=== PATIENT | male | born 1950 | race Caucasian/White ===

== ENCOUNTER 2016-08-31 08:07 | Observation (INO) | payer BC ==
[~2016-08-31] VITALS: Ht 175.3 cm; Wt 73.6 kg
[~2016-08-31 08:07] MED LIST: AMLO-218 PO; ARIP10TA13 PO; BUPR-75 PO; CIPR500T4 PO; HYDR-3498 PO; METR500T PO; NAPR-260 PO; QUET50TA16 PO; ZOC20 PO
[2016-08-31] MEDS ORDERED: ONDANSETRON 4 MG INJ IV STA (08:22)
[2016-08-31] MEDS ORDERED: morphine 4 MG/ML VIAL IV STA ×2 (08:22→11:07)
--- NOTE | 2016-08-31 08:57 | ERA ---
ER Documentation Chief Complaint Date/Time DATE: 08/31/16 TIME: 08:53 Chief Complaint Chest pain HPI This 66-year-old male with a history of hypertension complains 2 hours prior to arrival of substernal chest pressure without radiation. Says he was short of breath and a little diaphoretic no palpitations no nausea. Patient has no prior cardiac history or prior cardiac workup. EMS was called and he was given aspirin prior to arrival as well as 2 sprays of nitroglycerin sublingual without change in chest pain condition. He says his pain is gradually starting to improve and is only very mild at this point. Says he is an occasional smoker. Also complaining of 2-3 months pain plantar surface of the left foot distally around metatarsal head #3. No foreign body known ROS All systems reviewed and are negative except as per history of present illness. Medications Home Meds Active Scripts Simvastatin (Simvastatin) 20 Mg Tablet, 20 MG PO HS for high cholersterol, #30 TAB Prov:SOHAIL CULLEN MD 05/04/14 Reported Medications Quetiapine Fumarate* (Seroquel*) 50 Mg Tablet, 50 MG PO HS, TAB 09/07/15 Bupropion Hcl* (Wellbutrin XL*) 150 Mg Tab.sr.24h, 150 MG PO DAILY, TAB.SA 09/07/15 Amlodipine Besylate* (Norvasc*) 10 Mg Tablet, 10 MG PO DAILY, TAB 05/02/14 Aripiprazole* (Abilify*) 10 Mg Tablet, 10 MG PO BID, TAB 05/02/14 Discontinued Scripts Naproxen* (Naprosyn*) 500 Mg Tablet, 500 MG PO BID Y for PAIN AND/OR INFLAMMATION, #30 TAB Prov:LOU ROMO DO 09/07/15 Hydrocodone Bit-Acetaminophen* (Circle*) 5-325 Mg Tab, 1 TAB PO Q6 Y for PAIN, # 7 TAB Prov:LOU ROMO DO 09/07/15 Metronidazole* (Flagyl*) 500 Mg Tablet, 500 MG PO TID for 14 Days, TAB Prov:LOU ROMO DO 09/07/15 Ciprofloxacin Hcl* (Ciprofloxacin Hcl*) 500 Mg Tablet, 500 MG PO BID for 14 Days , TAB Prov:LOU ROMO DO 09/07/15 Allergies Allergies: Coded Allergies: Penicillins (Verified Allergy, Unknown, 04/16/15) PMhx/Soc Medical and Surgical Hx: pt denies Surgical Hx History of Surgery: No Anesthesia Reaction: No Hx Neurological Disorder: Yes (STROKE) Hx Respiratory Disorders: No Hx Cardiac Disorders: Yes (HTN) Hx Psychiatric Problems: No Hx Miscellaneous Medical Probl: No Hx Alcohol Use: Yes ("15 YEARS AGO") Hx Substance Use: Yes ("15 YEARS AGO") Hx Tobacco Use: Yes ("15 YEARS AGO") Smoking Status: Former smoker FmHx Family History: No coronary disease Physical Exam Vitals Vital Signs Date Time Temp Pulse Resp B/P Pulse Ox O2 Delivery O2 Flow Rate FiO2 08/31/16 10:02 98.0 76 133/96 100 Nasal Cannula 2.0 08/31/16 08:46 98.0 74 18 136/94 100 08/31/16 08:20 Nasal Cannula 2 08/31/16 08:20 98.0 20 124/94 100 2.0 Physical Exam Const: Well-developed, well-nourished Head: Atraumatic, normocephalic Eyes: Normal Conjunctiva, PERRLA, EOMI, normal sclera, no nystagmus ENT: Normal External Ears, Nose and Mouth, moist mucus membranes. Neck: Full range of motion. No meningismus, no lymphadenopathy. Resp: Clear to auscultation bilaterally, no wheezing, rhonchi, rales Cardio: Regular rate and rhythm, no murmurs, S1 S2 present Abd: Soft, non tender x 4, non distended. Normal bowel sounds, no guarding or rebound, no pulsitile abdominal masses or bruits Skin: No petechiae or rashes, no ecchymosis , no maculopapular rash Back: No midline or flank tenderness Ext: No cyanosis, or edema, FROM x 4, normal inspection, neurovascularly intact x 4 Neur: Awake and alert, STR 5/5 x 4, sensation intact x 4, no focal findings, cerebellum intact Psych: Normal Mood and Affect Result Diagram: 08/31/1692608/31/16926 Results 24 hrs Laboratory Tests Test 08/31/16 09:27 Activated Partial Thromboplast Time 25.8Sec Anion Gap 20 Basophils # 0.010^3/ul Basophils % 0.5% Blood Urea Nitrogen 13mg/dl Calcium Level 9.8mg/dl Carbon Dioxide Level 26mmol/L Chloride Level 101mmol/L Creatinine 1.17mg/dl Eosinophils # 0.010^3/ul Eosinophils % 0.6% Glucose Level 87mg/dl Hematocrit 54.3% Hemoglobin 18.5g/dl INR International Normalized Ratio 0.96 Lymphocytes # 1.410^3/ul Lymphocytes % 24.0% Mean Corpuscular Hemoglobin 30.5pg Mean Corpuscular Hemoglobin Concent 34.0g/dl Mean Corpuscular Volume 89.5fl Mean Platelet Volume 7.7fl Monocytes # 0.410^3/ul Monocytes % 6.4% Neutrophils # 4.010^3/ul Neutrophils % 68.5% Nucleated Red Blood Cells # 0.010^3/ul Nucleated Red Blood Cells % 0.0/100WBC Platelet Count 25763^3/UL Potassium Level 3.9mmol/L Prothrombin Time 12.8Sec Prothrombin Time Ratio 1.0 Red Blood Count 6.0710^6/ul Red Cell Distribution Width 13.7% Sodium Level 143mmol/L Troponin I 0.014ng/ml White Blood Count 5.810^3/ul Current Medications Medications (Trade) Dose Ordered Sig/Yoandy Route PRN Reason Start Time Stop Time Status Last Admin Dose Admin Morphine Sulfate (morphine) 4 mg ONCE STAT IV 08/31/16 08:22 08/31/16 08:24 DC 08/31/16 08:39 Ondansetron HCl (Zofran Inj) 4 mg ONCE STAT IV 08/31/16 08:22 08/31/16 08:24 DC 08/31/16 08:39 Morphine Sulfate (morphine) 4 mg ONCE STAT IV 08/31/16 11:07 08/31/16 11:08 DC 08/31/16 11:14 Procedures/MDM EKG: Rate/Rhythm: Normal sinus rhythm, left axis deviation, inferior Q waves, inverted T waves leads V5 and V6 QRS, ST, QT: NORMAL NV, QRS, QT] Impression: Abnormal l EKG] PROCEDURE: XR Chest. CLINICAL INDICATION: Chest Pain. TECHNIQUE: Single frontal chest x-ray. COMPARISON: 04/16/2015 FINDINGS: The lungs are clear of acute infiltrates, edema, effusions, or masses.. The cardiomediastinal silhouette is unremarkable. The osseous structures are intact. IMPRESSION: No acute cardiopulmonary disease. RPTAT: RR .Kashif Murphy MD, Date Time Electronically viewed and signed by .Kashif Murphy MD, on 08/31/2016 09:23 .L/ CC: JESSICA CROCKER DO PROCEDURE: XR Left Foot CLINICAL INDICATION: Plantar foreign body TECHNIQUE: AP, oblique, and lateral radiographs were submitted. COMPARISON: None FINDINGS: Osseous structures: appear well mineralized and intact with no fracture or destructive process identified. Joint spaces: There is mild degenerative change and a metatarsal tarsal joint space, presumably the third. Soft tissues: Are unremarkable with no radiopaque foreign body identified. IMPRESSION: 1. Mild degenerative change at the anterior tarsal-metatarsal joint space, presumably at the base of the third metatarsal. 2. Otherwise, unremarkable left foot with no radiopaque foreign body identified. Physician Mathew Date Time Electronically viewed and signed by Physician Mathew on 08/31/2016 11:16 RH/ CC: JESSICA CROCKER DO Patient's symptoms are concerning for cardiac cause will require inpatient workup and continuous monitoring. Further w/u for ischemia, arrhythmia, PE or dissection will be deferred to the inpatient team. Accepting Care Team: Current data and ongoing care discussed. Time: Time of admission Primary Provider: [XOXOXO] Consulting: [XOXOXO] Outstanding Data: none Departure Diagnosis: Primary Impression: Chest pain Qualified Code: R07.9 - Chest pain, unspecified type Condition: Stable JESSICA CROCKER DO Aug 31, 2016 08:57
--- NOTE | 2016-08-31 09:23 | RADRPT ---
PROCEDURE: XR Chest. CLINICAL INDICATION: Chest Pain. TECHNIQUE: Single frontal chest x-ray. COMPARISON: 04/16/2015 FINDINGS: The lungs are clear of acute infiltrates, edema, effusions, or masses.. The cardiomediastinal silho uette is unremarkable. The osseous structures are intact. IMPRESSION: No acute cardiopulmonary disease. RPTAT: RR .Kashif Murphy MD, MD Date Time Electronically viewed and signed by .Kashif Murphy MD, MD on 08/31/2016 09:23 .L/
[2016-08-31 09:45] LABS: BASOPHILS % 0.5 % (0.0-2.0); EOSINOPHILS % 0.6 % (0.0-7.0); HEMATOCRIT 54.3 % (42.0-52.0); HEMOGLOBIN 18.5 g/dl (14.0-18.0); LYMPHOCYTES # 1.4 10^3/ul (0.8-2.9); MEAN CORPUSCULAR HEMOGLOBIN 30.5 pg (29.0-33.0); MEAN CORPUSCULAR VOLUME 89.5 fl (82.0-101.0); MEAN PLATELET VOLUME 7.7 fl (7.4-10.4); MONOCYTE # 0.4 10^3/ul (0.3-0.9); MONOCYTES % 6.4 % (0.0-11.0); NEUTROPHILS % 68.5 % (39.0-77.0); PLATELET COUNT 232 10^3/UL (140-440); RED BLOOD COUNT 6.07 10^6/ul (4.70-6.10); RED CELL DISTRIBUTION WIDTH 13.7 % (11.5-14.5); UNCORRECTED WBC 5.8 10^3/ul (4.8-10.8); WHITE BLOOD COUNT 5.8 10^3/ul (4.8-10.8)
[2016-08-31 09:46] LABS: CONDITION 1
[2016-08-31 09:54] LABS: POTASSIUM 3.9 mmol/L (3.5-5.1)
[2016-08-31 09:57] LABS: CREATININE 1.17 mg/dl (0.61-1.24)
[2016-08-31 09:58] LABS: CALCIUM 9.8 mg/dl (8.4-10.2)
[2016-08-31 10:01] LABS: INR 0.96; PROTIME 12.8 Sec (12.2-14.2)
[2016-08-31 10:02] LABS: PARTIAL THROMBOPLASTIN TIME 25.8 Sec (25.0-35.0)
[2016-08-31 10:10] LABS: TROPONIN-I 0.014 ng/ml (0.00-0.12)
--- NOTE | 2016-08-31 11:17 | RADRPT ---
PROCEDURE: XR Left Foot CLINICAL INDICATION: Plantar foreign body TECHNIQUE: AP, oblique, and lateral radiographs were submitted. COMPARISON: None FINDINGS: Osseous structures: appear well mineralized and intact with no fracture or destructive process iden tified. Joint spaces: There is mild degenerative change and a metatarsal tarsal joint space, presumably the third. Soft tissues: Are unremarkable with no radiopaque foreign body identified. IMPRESSION: 1. Mild degenerative change at the anterior tarsal-metatarsal joint space, presumably at the base o f the third metatarsal. 2. Otherwise, unremarkable left foot with no radiopaque foreign body identified. Physician Mathew Date Time Electronically viewed and signed by Physician Mathew on 08/31/2016 11:16 /
[2016-08-31] MEDS ORDERED: ONDANSETRON 4 MG INJ IV PRN (11:30)
[2016-08-31] MEDS ORDERED: SOD CHLORIDE 0.9% 1,000 ML IV SCH (11:30)
[2016-08-31] MEDS ORDERED: ACETAMINOPHEN 325 MG TAB PO PRN ×2 (11:30→12:00)
[2016-08-31] MEDS ORDERED: morphine 2 MG INJ IV PRN (12:00)
[2016-08-31] MEDS ORDERED: ONDANSETRON 4 MG TAB PO PRN (12:00)
[2016-08-31] MEDS ORDERED: NITROGLYCERIN (SL) 0.4 MG TAB SL PRN (12:00)
[2016-08-31] MEDS ORDERED: DOCUSATE SODIUM 100 MG CAP PO PRN (12:00)
[2016-08-31] MEDS ORDERED: NACL 0.9% 3 ML SYG IV SCH (12:00)
[2016-08-31 13:44] LABS: CK-MB 4.47 ng/ml (0.0-2.4)
[2016-08-31 14:15] VITALS: TEMP 98
[2016-08-31 14:38] VITALS: BP 142/84; PULSE 60; RESP 16
[2016-08-31 14:39] VITALS: Ht 175.3 cm; Wt 73.6 kg
[2016-08-31] MEDS ORDERED: LEVOFLOXACIN 500MG/D5W (PMX) 100 ML IVPB SCH (16:30)
[2016-08-31 16:35] VITALS: PULSE 70
--- NOTE | 2016-08-31 17:13 | HP ---
DATE OF ADMISSION: 08/31/2016 CONSULTANTS: 1. Cardiology. 2. Podiatry. CHIEF COMPLAINT: Chest pain and shortness of breath. HISTORY OF PRESENT ILLNESS: This is a 66-year-old gentleman with past medical history of hypertensi on, depression, anxiety, dyslipidemia who presents to [facility] secondary to havi ng an acute chest discomfort accompanied with shortness of breath, which occurred this morning at 10 :00 a.m. while he was at his work. The patient was seen and evaluated ____ who had an acute chest d iscomfort this morning explained as a sharp pain in his left anterior chest accompanied with shortne ss of breath without any diaphoresis at 10 a.m. The pain was nonradiating. There was no cold sweat . There was no radiation of the pain to his extremity or his neck. The patient was brought into [facility] emergency room where his chest x-ray showed no acute cardiopulmonary disease. His EKG showed norm al sinus rhythm, left axis deviation, inferior Q-wave, inverted T-wave in lead V5 and V6. Normal DC . His troponin was found to be negative. He was treated with aspirin in the field, nitroglycerin, Zofran, an morphine in the course of the emergency room. At this time, the patient continues to com plain of having chest pain, shortness of breath. He denies of any headache, dizziness, lightheadedn ess. No change in visual acuity, diplopia, photophobia. No abdominal pain, no nausea, vomiting, di arrhea. No recent travel history. No sick contact. He stated that he has been growing amount of p ressure for the past several months secondary to his job, although this type of chest discomfort has never occurred to him before. At this time, the patient is lying in bed comfortably. He is mildly anxious. Denies having any other discomfort. PAST MEDICAL AND SURGICAL HISTORY: As above per HPI. MEDICATIONS: 1. Amlodipine. 2. Abilify. 3. Wellbutrin. 4. Seroquel. 5. Simvastatin. ALLERGIES: PENICILLIN. SOCIAL HISTORY: Smokes about 10 to 15 cigarettes per day for the past 25 years. Denies any use of any alcohol or any illicit drugs. He lives alone. REVIEW OF SYSTEMS: As above per HPI, otherwise 12 review of systems has been found to be negative. PHYSICAL EXAMINATION: VITAL SIGNS: Temperature 97.4, pulse 60, respirations 16, blood pressure 142/84, oxygen 96% on 2 li ters via nasal cannula. GENERAL APPEARANCE: The patient is lying in bed comfortably without any distress. He is awake, cherelle rt, oriented. He is able to answer my questions properly. Body habitus is within normal limit. EYES AND ENT: Conjunctivae and lids are normal. Pupils are normal. Extraocular normal. Hearing g rossly normal. Lips and gums are normal. Oral mucosa is mildly dry. NECK: Supple. Trachea is midline. No lymphadenopathy. RESPIRATORY: Effort is normal. Clear to auscultate bilaterally. CARDIOVASCULAR: Normal S1, S2. Regular rhythm and rate. No murmur, no bruits, no edema. Peripher al pulses, radial pulses palpable. Cap refill is normal. CHEST: Normal expansion of thorax during inspiration. GASTROINTESTINAL: Abdomen is soft, nontender, not distended. Bowel sounds present. No guarding, n o rebound. GENITOURINARY: Deferred. MUSCULOSKELETAL: Upper and lower extremities within normal limits. Full range of motion. Strength 5/5 in both upper and lower extremities. NEUROLOGIC: Cranial nerves II through XII are grossly intact. PSYCHIATRIC: Normal judgment and insight. Alert and oriented x3. Mood and affect is normal. LABORATORY WORK AND IMAGING: Chest x-ray: No acute cardiopulmonary disease. Sodium 143, potassium 3.9, chloride 101, bicarbonate 26, BUN 13, creatinine 1.17, glucose 87, calcium 9.8. Creatine stephenie se 418, CK-MB 4.47. Troponin 0.14. WBC 5.8, hemoglobin 18.5, hematocrit 54.3, platelets 232. PT 1 2.8, INR 0.96. ASSESSMENT AND PLAN: 1. Acute chest pain with the finding of inferior Q-waves, inverted T-wave in lead V5 and V6. Cardi ology has been consulted. Obtain a 2D echocardiogram. The patient has been started on aspirin and continue statin. Obtain 2D echocardiogram. Follow serial troponin. 2. Acute shortness of breath. This is likely secondary to chest discomfort versus anxiety. Also, will obtain a D-dimer. If D-dimer is positive, I will obtain a VQ scan to rule out pulmonary emboli sm. At this time, the patient has been started on Lovenox 40 mg subcu daily. 3. Dyslipidemia. Continue statin. Follow lipid panel in a.m. 4. Essential hypertension, well controlled on Norvasc. 5. Depression and anxiety. Continue Wellbutrin and Abilify. 6. Mood disorder. Continue Seroquel. 7. For deep venous thrombosis prophylaxis, on Lovenox. 8. We will continue to monitor patient closely. Further recommendation, management, and treatment during the course. 9. For nicotine dependency. The patient has been placed on nicotine patch. Total amount of time was spent for evaluation of patient and admission workup 40 minutes. Dictated By: MARSHA HUITRON MD PN/NTS Conf#: [id number] DID#: [id number]
[2016-08-31 17:39] VITALS: BP 144/82; PULSE 60; RESP 16
[2016-08-31] MEDS ORDERED: LIDOCAINE 5% 35 GM OINT TOP PRN (18:00)
[2016-08-31 18:16] LABS: D-DIMER < 220.00 ng/ml (<460)
[2016-08-31 18:29] LABS: CREATINE KINASE 383 IU/L (23-200)
--- NOTE | 2016-08-31 18:35 | CONS ---
DATE OF ADMISSION: 08/31/2016 DATE OF CONSULTATION: 08/31/2016 CHIEF COMPLAINT: Left foot pain. HISTORY OF PRESENT ILLNESS: A 66-year-old gentleman was noted to have pain and callus and possible ulceration to the left foot. He was admitted for acute chest pain, shortness of breath and patient being followed for this. PAST MEDICAL HISTORY: Hypertension, depression, anxiety, hyperlipidemia and anxiety. MEDICATIONS 1. Amlodipine. 2. Abilify. 3. Wellbutrin. 4. Seroquel. 5. Simvastatin. ALLERGIES: PENICILLIN. SOCIAL HISTORY: Smokes 10 to 15 cigarettes per day for the last 25 years. Lives alone. PHYSICAL EXAMINATION: VITAL SIGNS: Temperature 97.6, pulse is 60, respiratory rate 16, blood pressure 144/82, pulse ox is 98 with 2 liters. GENERAL: Patient lying supine, awake, no distress. HEENT: Head normocephalic, atraumatic. Trachea is midline. CHEST: Regular respiration. EXTREMITIES: Left foot with presence of onychomycosis with subungual debris. There is epidermolysi s of skin and callus at the plantar arch and heel with fissuring. No signs of puncture wounds. The re is a thick callus medial aspect of the left great toe and sub-second metatarsophalangeal joint. Patient has pain with light touch, 2+ DP, PT pulse. 5/5 dorsiflexion and plantarflexion of the left ankle. Negative anterior drawer or talar tilt. LABORATORIES: WBC 5.8, hemoglobin 18.5, hematocrit 54.3, sodium 143, potassium 3.9, chloride 101, C O2 of 26, BUN 13, creatinine 1.17. Creatinine kinase 418, CK-MB 4.47. Troponin 0.014. IMAGING: Foot x-ray: Mild DJD of tarsometatarsal joints base of the third metatarsal, otherwise un remarkable. No evidence of foreign body. Chest x-ray: No acute cardiopulmonary disease. ASSESSMENT: 1. Left foot pain. 2. 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 3. Left foot cord with possible underlying ulceration, left medial hallux and sub-second metatarsop halangeal joint. 4. Tinea pedis. 5. Onychomycosis. PLAN: The patient is seen and evaluated. Nursing recommendations given. Recommend application of lidocaine cream, clotrimazole. If pain persists, obtain a consent for debridement of the corn callu s and possible ulcerations. X-rays are reviewed and no evidence of foreign body. Dictated By: JANE WALDRON/MYKEL Conf#: [id number] DID#: [id number]
[2016-08-31 18:44] LABS: CK-MB 5.41 ng/ml (0.0-2.4); TROPONIN-I < 0.012 ng/ml (0.00-0.12)
--- NOTE | 2016-08-31 19:01 | CONS ---
Date/Time of Note Date/Time of Note DATE: 08/31/16 TIME: 18:55 Assessment/Plan Assessment/Plan Additional Assessment/Plan Sharp chest pain Cough and shortness of breath Hypertension Tobacco use Psychiatric disorder -Patient's with symptoms of sharp chest pain with cough which was exacerbated by cold weather. First 2 sets of troponins are negative, d-dimer is negative. Would obtain echocardiogram, serial cardiac enzymes, continue aspirin therapy, continue telemetry monitoring. Smoking cessation. Blood pressure control. Consultation Date/Type/Reason Admit Date/Time Aug 31, 2016 at 11:31 Type of Consultation: cv Reason for Consultation Chest pain Hx of Present Illness This is a 66-year-old male with past medical history of hypertension, psychiatric disorder who presents with shortness of breath and chest pain. Patient went outside in the cold weather and rain and with taking in deep breaths, developed sharp chest pain. This was associated with shortness of breath. Chest pain was exacerbated by deep breathing and improved with shallow breathing. The chest pain was sharp. He also began coughing as well. He became worried so he came to the emergency room for evaluation. Since his admission, his had a few sporadic episodes of sharp chest pain with coughing. He has been having a wet cough over the past few days. He denies any fevers or chills, dizziness or lightheadedness. He denies exertional chest pain but does have shortness of breath at times. He does currently smoke approximately half a pack of cigarettes per day. 12 point review of systems was performed with all pertinent positives and negatives mentioned above and all else is negative Past Medical History Psychiatric disorder Medical History: hypertension Past Surgical History surgery many years ago Family History Significant Family History: other (Brother in his mid 50s from congestive heart failure with history of alcohol abuse, father from CVA in his 60s) Social History Alcohol Use: other (one can of beer daily) Smoking Status: Current every day smoker Exam/Review of Systems Vital Signs Vitals Vital Signs Date Time Temp Pulse Resp B/P Pulse Ox O2 Delivery O2 Flow Rate FiO2 08/31/16 17:39 97.6 60 16 144/82 98 2.0 08/31/16 14:15 Nasal Cannula Exam Coughing at times during examination, no apparent distress, eating dinner Constitutional: alert, oriented Head: normocephalic Neck: supple Respiratory: other (course breath sounds bilaterally, no wheezing) Cardiovascular: regular rate and rhythm (S1 and S2 heard) Gastrointestinal: bowel sounds, non-tender, other (no guarding), soft Extremities: other (no edema) Results Result Diagram: 08/31/1692608/31/16926 Results 24 hrs Laboratory Tests Test 08/31/16 09:27 08/31/16 11:51 08/31/16 17:00 08/31/16 18:05 Activated Partial Thromboplast Time 25.8 Anion Gap 20 H Basophils # 0.0 Basophils % 0.5 Blood Urea Nitrogen 13 Calcium Level 9.8 Carbon Dioxide Level 26 Chloride Level 101 Creatinine 1.17 Eosinophils # 0.0 Eosinophils % 0.6 Glucose Level 87 Hematocrit 54.3 H Hemoglobin 18.5 H INR International Normalized Ratio 0.96 Lymphocytes # 1.4 Lymphocytes % 24.0 Mean Corpuscular Hemoglobin 30.5 Mean Corpuscular Hemoglobin Concent 34.0 Mean Corpuscular Volume 89.5 Mean Platelet Volume 7.7 Monocytes # 0.4 Monocytes % 6.4 Neutrophils # 4.0 Neutrophils % 68.5 Nucleated Red Blood Cells # 0.0 Nucleated Red Blood Cells % 0.0 Platelet Count 232 Potassium Level 3.9 Prothrombin Time 12.8 Prothrombin Time Ratio 1.0 Red Blood Count 6.07 Red Cell Distribution Width 13.7 Sodium Level 143 Troponin I 0.014 < 0.012 White Blood Count 5.8 # Creatine Kinase 418 H 383 H Creatinine Kinase MB (Mass) 4.47 H 5.41 H D-Dimer < 220.00 D-Dimer Comment Creatine Kinase Index 1.4 Medications Medications Current Medications Sodium Chloride (NS) 1,000 ml @ 80 mls/hr [id number] IV Last administered on t 12:51; Admin Dose 80 MLS/HR; Start 08/31/16 at 11:30; Stop 08/31/16 at 23:59 Ondansetron HCl (Zofran Tab) 4 mg Q6H PRN PO NAUSEA AND/OR VOMITING; Start 08/31 at 12:00 Aspirin (Aspirin) 81 mg DAILY PO ; Start 09/01/16 at 09:00 Nitroglycerin (Nitroglycerin (Sl Tab) 0.4 Mg) 1 tab Q5M PRN SL CHEST PAIN; Start 08/31/16 at 12:00 Acetaminophen (Tylenol Tab) 650 mg Q6H PRN PO PAIN LEVEL 1-3 OR FEVER; Start at 12:00 Morphine Sulfate (morphine) 1 mg Q4H PRN IV PAIN LEVEL 7-10 Last administered on 08/31/16 14:46; Admin Dose 1 MG; Start 08/31/16 at 12:00 Docusate Sodium (Colace) 100 mg Q12H PRN PO CONSTIPATION; Start 08/31/16 at 12: 00 Enoxaparin Sodium (Lovenox) 40 mg DAILY SC ; Start 09/01/16 at 09:00 Nicotine 1 patch 1 patch DAILY TRANSDERM ; Start 09/01/16 at 09:00 Levofloxacin/ Dextrose (Levaquin 500mg/ D5W 100 ml (Pmx)) 100 ml @ 100 mls/hr Q24H IVPB Last administered on 08/31/16 18:00; Admin Dose 100 MLS/HR; Start 08/31/16 at 16:30 Amlodipine Besylate (Norvasc) 10 mg DAILY PO ; Start 09/01/16 at 09:00 Aripiprazole (Abilify) 10 mg BID PO ; Start 08/31/16 at 21:00 Bupropion HCl (Wellbutrin Xl) 150 mg DAILY PO ; Start 09/01/16 at 09:00 Quetiapine Fumarate (Seroquel) 50 mg HS PO ; Start 08/31/16 at 21:00 Atorvastatin Calcium (Lipitor) 10 mg HS PO ; Start 08/31/16 at 21:00 Lidocaine (Lidocaine 5% Oint) 1 applic TID PRN TOP pain; Start 08/31/16 at 18:00 Clotrimazole (Lotrimin Cr) 1 applic BID TOP ; Start 08/31/16 at 21:00 Procedures Procedures ECG demonstrates sinus rhythm at 85 bpm, inferior and anteroseptal Q waves, nonspecific T-wave abnormalities Enzo John DO Aug 31, 2016 19:01
[2016-08-31 20:16] VITALS: PULSE 77
[2016-08-31 20:26] VITALS: BP 140/84; RESP 20
[2016-08-31] MEDS: ARIPIPRAZOLE 10 MG TAB PO SCH (20:50)
[2016-08-31] MEDS: CLOTRIMAZOLE 1% 30 GM CR TOP SCH (20:51)
[2016-08-31] MEDS ORDERED: ATORVASTATIN 10 MG TAB PO SCH (21:00)
[2016-08-31] MEDS ORDERED: QUETIAPINE 25 MG TAB PO SCH (21:00)
--- NOTE | 2016-08-31 22:44 | RADRPT ---
Echocardiogram Report Patient Name: CASTILLO ALFARO Gender: Male Date: 1950 Study Date: 31-Aug-2016 Tattoo And Body Artist: Niesha Heredia RDCS Location: [facility] Ref. Physician: MARSHA HUITRON Quality: Good Procedures: Transthoracic echocardiogram with complete 2D, M-Mode, and doppler examination. Indications: Chest Pain. 2D/M Mode Doppler Measurement Value Normal Ranges Measurement Value Normal Ranges LVIDd 2D 4.1 3.5 - 5.6 cm AV Peak Brando 1.2 m/sec LVIDs 2D 2.1 2.1 - 4.1 cm AV Peak PG 5.0 mmHg FS 2D 48.3 % LVOT Peak Brando 0.9 m/sec LVPWd 2D 1.0 0.6 - 1.1 cm LVOT Peak PG 3.0 mmHg IVSd 2D 0.9 0.6 - 1.1 cm MV E Peak Brando 0.5 m/sec IVS/LVPW 2D 0.9 MV A Peak Brando 0.8 m/sec AoR Diam 2D 2.8 2.0 - 3.7 cm MV E/A 0.6 LA/Ao 2D 1 0 - 1 MV Decel Time 162 msec EDV 2D 69.9 cm3 MV E/A 0.6 ESV 2D 9.7 cm3 LA Dimen 2D 3.1 2.3 - 4.0 cm Findings Left Ventricle: Normal left ventricular systolic function. Normal left ventricular cavity size. Mild concentric left ventricular hypertrophy. Ejection fraction is visually estimated at 65 %. Tissue Doppler/Mitral Doppler indices are consistent with impaired relaxation (Stage I diastolic dysfunction). Right Ventricle: Normal right ventricular size. Normal right ventricular systolic function. Left Atrium: The left atrium is normal in size. Right Atrium: The right atrium is normal in size. Mitral Valve: Mitral valve leaflets appear mildly thickened. Mild mitral annular calcification. Trace mitral regurgitation. Aortic Valve: Normal appearance of the aortic valve. No significant aortic stenosis or insufficiency. Tricuspid Valve: Normal appearance and function of the tricuspid valve with trace physiologic regurgitation. Pulmonic Valve: Normal pulmonic valve appearance. Pericardium: Normal pericardium with no significant pericardial effusion. Aorta: Normal aortic root. IVC: Normal size and normal respiratory collapse consistent with normal right atrial pressure. Conclusions Normal left ventricular systolic function. Normal left ventricular cavity size. Mild concentric left ventricular hypertrophy. Ejection fraction is visually estimated at 65 %. Tissue Doppler/Mitral Doppler indices are consistent with impaired relaxation (Stage I diastolic dysfunction). Normal right ventricular size. Normal right ventricular systolic function. The left atrium is normal in size. The right atrium is normal in size. No significant valvular stenosis or regurgitation seen. Normal pericardium with no significant pericardial effusion. Electronically Signed By: Enzo John 31-Aug-2016 22:44:26 -0800 Patient Name: CASTILLO ALFARO Study Date: 31-Aug-2016 [id number]
[2016-09-01] VITALS (8 sets, daily range): BP systolic 114–132; BP diastolic 75–82; PULSE 60–73; RESP 17–20
[2016-09-01 00:15] LABS: CREATINE KINASE 413 IU/L (23-200)
[2016-09-01 00:27] LABS: CK-MB 5.25 ng/ml (0.0-2.4)
[2016-09-01 00:36] LABS: TROPONIN-I < 0.012 ng/ml (0.00-0.12)
[2016-09-01] MEDS ORDERED: NICOTINE (14 MG/24 HR) PATCH TRANSDERM SCH (09:00)
[2016-09-01] MEDS ORDERED: AMLODIPINE 10 MG TAB PO SCH (09:00)
[2016-09-01] MEDS ORDERED: ENOXAPARIN 40 MG/0.4 ML SYG SC SCH (09:00)
[2016-09-01] MEDS ORDERED: ASPIRIN 81 MG TAB PO SCH (09:00)
[2016-09-01] MEDS ORDERED: BUPROPION (XL) 150 MG TAB PO SCH (09:00)
[2016-09-01] MEDS: ARIPIPRAZOLE 10 MG TAB PO SCH (09:04)
[2016-09-01] MEDS: CLOTRIMAZOLE 1% 30 GM CR TOP SCH (09:05)
[2016-09-01 09:30] LABS: BASOPHILS % 0.5 % (0.0-2.0); EOSINOPHILS # 0.1 10^3/ul (0.0-0.5); EOSINOPHILS % 1.4 % (0.0-7.0); HEMATOCRIT 52.5 % (42.0-52.0); HEMOGLOBIN 18.2 g/dl (14.0-18.0); LYMPHOCYTES # 1.7 10^3/ul (0.8-2.9); LYMPHOCYTES % 38.2 % (15.0-51.0); MEAN CORPUSCULAR HEMOGLOBIN 30.8 pg (29.0-33.0); MEAN CORPUSCULAR HGB CONC 34.6 g/dl (32.0-37.0); MEAN CORPUSCULAR VOLUME 88.9 fl (82.0-101.0); MEAN PLATELET VOLUME 7.6 fl (7.4-10.4); MONOCYTE # 0.3 10^3/ul (0.3-0.9); MONOCYTES % 7.7 % (0.0-11.0); NEUTROPHIL # 2.3 10^3/ul (1.6-7.5); NEUTROPHILS % 52.2 % (39.0-77.0); PLATELET COUNT 198 10^3/UL (140-440); RED CELL DISTRIBUTION WIDTH 12.9 % (11.5-14.5); UNCORRECTED WBC 4.5 10^3/ul (4.8-10.8); WHITE BLOOD COUNT 4.5 10^3/ul (4.8-10.8)
[2016-09-01 09:38] LABS: POTASSIUM 3.3 mmol/L (3.5-5.1)
[2016-09-01 09:39] LABS: CONDITION 1
[2016-09-01 09:40] LABS: CREATININE 1.05 mg/dl (0.61-1.24)
[2016-09-01 09:41] LABS: CALCIUM 9.6 mg/dl (8.4-10.2)
[2016-09-01 09:42] LABS: CHOL/HDL RATIO 3.6 RATIO
[2016-09-01 10:12] LABS: THYROID STIMULATING HORMONE 0.669 MIU/L (0.465-4.680)
--- NOTE | 2016-09-01 11:58 | PDOCDIS ---
Discharge Instructions CONDITION Patient Condition: Stable HOME CARE INSTRUCTIONS: Special Diet: Cardiac ACTIVITY: Activity Restrictions: Slowly Increase Activity Rest between Activity Avoid heavy lifting FOLLOW UP/APPOINTMENTS Appointments Follow up with PCP in one week Follow up with cardiology as out-pt Follow up with Podiatry as out-pt MARSHA HUITRON MD Sep 01, 2016 11:58
[2016-09-01] MEDS ORDERED: CLO15CR1 TOP (12:04)
[2016-09-01] MEDS ORDERED: Nicotine (14 Mg/24 Hr) TRANSDERM (12:04)
[2016-09-01] MEDS ORDERED: NIT4 SL (12:04)
[2016-09-01] MEDS ORDERED: ASPI81TA3 PO (12:04)
[2016-09-01] MEDS ORDERED: POTASSIUM CHLORIDE (SR) 20 MEQ TAB PO STA (12:14)
--- NOTE | 2016-09-01 14:41 | CONS ---
Date/Time of Note Date/Time of Note DATE: 09/01/16 TIME: 14:38 Assessment/Plan Assessment/Plan Additional Assessment/Plan Sharp chest pain Cough and shortness of breath Preserved ejection fraction Abnormal ECG Hypertension Tobacco use Psychiatric disorder -Patient denies any further symptoms of chest pain or shortness of breath. Cough has improved. Serial troponins have remained unremarkable, echocardiogram within normal limits. ECG with evidence of Q waves. I did discuss with the patient, he is requesting discharge with follow-up as an outpatient if recurrent symptoms. DC planning. Consultation Date/Type/Reason Admit Date/Time Aug 31, 2016 at 11:31 Initial Consult Date Type of Consultation: cv 24 HR Interval Summary Free Text/Dictation Patient denies any further chest pain or shortness of breath. Patient states he was ambulating the hallways and feels fine without chest pain or shortness of breath Exam/Review of Systems Vital Signs Vitals Vital Signs Date Time Temp Pulse Resp B/P Pulse Ox O2 Delivery O2 Flow Rate FiO2 09/01/16 12:16 73 09/01/16 11:51 98.5 17 118/76 97 09/01/16 07:41 Nasal Cannula 2.0 Intake and Output 08/31/16 08/31/16 09/01/16 15:00 23:00 07:00 Intake Total 730 ml Output Total 350 ml Balance 380 ml Exam No apparent distress Constitutional: alert, oriented Head: normocephalic Neck: supple Respiratory: other (course breath sounds bilaterally, no wheezing) Cardiovascular: other (S1 and S2 heard), regular rate and rhythm Gastrointestinal: bowel sounds, non-tender, soft Extremities: other (no edema) Results Result Diagram: 09/01/16 0916 09/01/16 0916 Results 24 hrs Laboratory Tests Test 08/31/16 17:00 08/31/16 18:05 08/31/16 22:43 09/01/16 09:16 D-Dimer < 220.00 D-Dimer Comment Creatine Kinase 383 H 413 H Creatine Kinase Index 1.4 1.3 Creatinine Kinase MB (Mass) 5.41 H 5.25 H Troponin I < 0.012 < 0.012 Anion Gap 13 # Basophils # 0.0 Basophils % 0.5 Blood Urea Nitrogen 17 Calcium Level 9.6 Carbon Dioxide Level 29 Chloride Level 102 Cholesterol Level 147 Cholesterol/HDL Ratio 3.6 Creatinine 1.05 Eosinophils # 0.1 Eosinophils % 1.4 Glucose Level 91 HDL Cholesterol 40 Hematocrit 52.5 H Hemoglobin 18.2 H LDL Cholesterol, Calculated 90 Lymphocytes # 1.7 Lymphocytes % 38.2 Magnesium Level 2.0 Mean Corpuscular Hemoglobin 30.8 Mean Corpuscular Hemoglobin Concent 34.6 Mean Corpuscular Volume 88.9 Mean Platelet Volume 7.6 Monocytes # 0.3 Monocytes % 7.7 Neutrophils # 2.3 Neutrophils % 52.2 Nucleated Red Blood Cells # 0.0 Nucleated Red Blood Cells % 0.0 Platelet Count 198 Potassium Level 3.3 L Red Blood Count 5.90 Red Cell Distribution Width 12.9 Sodium Level 141 Thyroid Stimulating Hormone (TSH) 0.669 Triglycerides Level 87 White Blood Count 4.5 #L Medications Medications Current Medications Ondansetron HCl (Zofran Tab) 4 mg Q6H PRN PO NAUSEA AND/OR VOMITING; Start 08/31 at 12:00 Aspirin (Aspirin) 81 mg DAILY PO Last administered on 09/01/16 09:04; Admin Dose 81 MG; Start 09/01/16 at 09:00 Nitroglycerin (Nitroglycerin (Sl Tab) 0.4 Mg) 1 tab Q5M PRN SL CHEST PAIN Last administered on 08/31/16 20:56; Admin Dose 1 TAB; Start 08/31/16 at 12:00 Acetaminophen (Tylenol Tab) 650 mg Q6H PRN PO PAIN LEVEL 1-3 OR FEVER; Start at 12:00 Morphine Sulfate (morphine) 1 mg Q4H PRN IV PAIN LEVEL 7-10 Last administered on 08/31/16 14:46; Admin Dose 1 MG; Start 08/31/16 at 12:00 Docusate Sodium (Colace) 100 mg Q12H PRN PO CONSTIPATION; Start 08/31/16 at 12: 00 Enoxaparin Sodium (Lovenox) 40 mg DAILY SC Last administered on 09/01/16 09:10 ; Admin Dose 40 MG; Start 09/01/16 at 09:00 Nicotine 1 patch 1 patch DAILY TRANSDERM Last administered on 09/01/16 09:04; Admin Dose 1 PATCH; Start 09/01/16 at 09:00 Levofloxacin/ Dextrose (Levaquin 500mg/ D5W 100 ml (Pmx)) 100 ml @ 100 mls/hr Q24H IVPB Last administered on 08/31/16 18:00; Admin Dose 100 MLS/HR; Start 08/31/16 at 16:30 Amlodipine Besylate (Norvasc) 10 mg DAILY PO Last administered on 09/01/16 09: 04; Admin Dose 10 MG; Start 09/01/16 at 09:00 Aripiprazole (Abilify) 10 mg BID PO Last administered on 09/01/16 09:04; Admin Dose 10 MG; Start 08/31/16 at 21:00 Bupropion HCl (Wellbutrin Xl) 150 mg DAILY PO Last administered on 09/01/16 09: 04; Admin Dose 150 MG; Start 09/01/16 at 09:00 Quetiapine Fumarate (Seroquel) 50 mg HS PO Last administered on 08/31/16 20:56 ; Admin Dose 50 MG; Start 08/31/16 at 21:00 Atorvastatin Calcium (Lipitor) 10 mg HS PO Last administered on 08/31/16 20:50 ; Admin Dose 10 MG; Start 08/31/16 at 21:00 Lidocaine (Lidocaine 5% Oint) 1 applic TID PRN TOP pain Last administered on 20:51; Admin Dose 1 APPLIC; Start 08/31/16 at 18:00 Clotrimazole (Lotrimin Cr) 1 applic BID TOP Last administered on 09/01/16 09:05 ; Admin Dose 1 APPLIC; Start 08/31/16 at 21:00 Enzo John DO Sep 01, 2016 14:41
--- NOTE | 2016-09-02 08:16 | DS ---
DATE OF ADMISSION: 08/31/2016 DATE OF DISCHARGE: 09/01/2016 CONSULTANTS: 1. Cardiology. 2. Podiatry. PROCEDURE: A 2-D echocardiogram which demonstrated normal ejection fraction, normal left ventricula r systolic function, normal left ventricular cavity size, mild concentric left ventricular hypertrop hy, ejection fraction visually estimated at 65%, stage I diastolic dysfunction. Normal right ventric ular size. Normal right ventricular systolic function. The left and right atria are normal size. No significant valvular stenosis or regurgitation seen. Normal pericardium with no significant padmini cardial effusion. DISCHARGE DIAGNOSES 1. Atypical chest pain, acute coronary syndrome was ruled out with negative troponin. A 2D echocar diogram showed normal ejection fraction. 2. Dyslipidemia. Continue statin. 3. Essential hypertension, well controlled on Norvasc. 4. Depression and anxiety. Continue Wellbutrin and Abilify. 5. Mood disorder. Continue Seroquel. 6. History of smoking. Education was provided. The patient was instructed to quit smoking. He w ill be discharged on nicotine patch. 7. Onychomycosis. The patient was seen and evaluated by the podiatry. We will discharge on clotri mazole. 8. Callus of the left foot. The patient will follow up with podiatry as an outpatient. MEDICATIONS: 1. Aspirin 81 mg. 2. Clotrimazole cream. 3. Nitroglycerin. 4. Nicoderm. 5. Amlodipine 10 mg. 6. Abilify 10 mg. 7. Wellbutrin-XL 150 mg. 8. Seroquel 50 mg. 9. Simvastatin 10 mg. ALLERGIES: PENICILLIN. DISPOSITION: Home. FOLLOWUP: Follow up with primary care physician, cardiology and podiatry as an outpatient. HOSPITAL COURSE: This is a 66-year-old gentleman with past medical history of nicotine dependency, hypertension, depression, anxiety, mood disorder, diverticulitis, TIA, whom presents to [facility] secondary to having chest discomfort accompanied with shortness of breath. Th e patient has been under a great amount of stress at work and while he was at work yesterday morning on 08/31/2016, he had acute chest pain, nonradiating, not accompanied with any shortness of b reath. He was brought into the emergency room where he was found to have an EKG with Q wave. Cardi ology was consulted. Echocardiogram was obtained. The patient was placed on morphine, aspirin, oxy gen and nitroglycerin. A 2D echocardiogram was obtained and showed normal ejection fraction. The roxanne velazquez was continued on his home medication, amlodipine for his blood pressure. His blood pressure is well controlled at 118/76. The rest of the vitals are stable with a temperature of 98.4, pulse 60, respirations 17, saturation 97% in room air. The patient was also seen and evaluated by podiatr y secondary to having callus on his right foot and at this time, the patient was treated with l idocaine and for his onychomycosis, the patient was placed on clotrimazole cream. At this time, patient is medically stable to be discharged home. His serial troponins were found to be negative. Waiting for cardiology evaluation prior to discharge. The patient at this time denie s any chest pain, shortness of breath, nausea, vomiting, diarrhea. No headache, dizziness, lighthea dedness or any other discomfort. LABORATORY DATA: WBC 4.5, hemoglobin 18.3, hematocrit 52.5, platelets 198. Sodium 143, potassium 3 .3, chloride 102, bicarbonate 29, BUN 17, creatinine 1.05, glucose 91. Troponin negative x3. Trigl ycerides 87, total cholesterol 147, LDL 90, HDL 40. TSH 0.699. The patient's potassium of 3.3 was repeated by oral potassium prior to discharge. Total amount of time was spent for evaluation and discharge workup 40 minutes. Dictated By: MARSHA QUIROZ/MYKEL Conf#: [id number] DID#: [id number]
== END 2016-09-01 14:30 | disposition home or self-care (01) ==
LOC: E/R 08:07 → TEL 11:31
PROVIDERS: ADMIT Family Medicine; ATTEND Family Medicine
DX: R07.89 Other chest pain (principal); E78.5 Hyperlipidemia, unspecified; I10 Essential (primary) hypertension; F32.9 Major depressive disorder, single episode, unspecified; F41.9 Anxiety disorder, unspecified; F39 Unspecified mood [affective] disorder; B35.1 Tinea unguium; L84 Corns and callosities; M19.072 Primary osteoarthritis, left ankle and foot; B35.3 Tinea pedis; Z87.891 Personal history of nicotine dependence; Z86.73 Personal history of transient ischemic attack (TIA), and cerebral infarction without residual deficits; Z88.0 Allergy status to penicillin; Z79.82 Long term (current) use of aspirin; Z82.3 Family history of stroke; Z81.1 Family history of alcohol abuse and dependence
CPT/HCPCS: 71010; 73630; 80048; 80061; 82550; 82553; 83735; 84443; 84484; 85025; 85378; 85610; 85730; 93005; 93306; 96374; 96375; 96376; J0400; J1650; J1956; J2270; J2405; J7030; Z7500; Z7502; Z7610; G0378

== ENCOUNTER 2018-03-05 08:12 | Emergency (ER) | END 2018-03-05 09:58 | disposition home or self-care (01) ==

== ENCOUNTER 2018-03-13 04:15 | Inpatient (IN) | END 2018-03-31 12:45 | DRG 690 ==

== ENCOUNTER 2018-04-01 09:34 | Emergency (ER) | END 2018-04-01 14:12 | disposition home or self-care (01) ==